=== PATIENT | male | born 1995 | race African-American/Black ===

== ENCOUNTER 2017-02-28 18:51 | Emergency (ER) | payer OTHER ==
--- NOTE | 2017-02-28 18:57 | PDOC ---
Rapid Medical Evaluation Time Seen by Provider: 02/28/17 18:53 Medical Evaluation: Allergies Allergy/AdvReac Type Severity Reaction Status Date / Time Penicillins Allergy Verified 11/10/15 07:04 shellfish derived Allergy Verified 11/10/15 07:05 02/28/17 18:53 I have performed a brief in person evaluation of this patient. The patient presents with chief complaint of : right shoulder pain for 2 days denies trauma woke up with the pain . [facility]. pt takes high doses of narcotics s/p lung cancer surgery 2 yrs ago. Pertinent PE findings: pain reproduced with movement, no relief with motrin. I have ordered the following: shoulder right xray The patient will proceed to the ER for further evaluation.
[2017-02-28 18:58] VITALS: BP 127/75; PULSE 84; TEMP 98; BMI 31.0
--- NOTE | 2017-02-28 19:47 | PDOC ---
History of Present Illness - General History Source: Patient Exam Limitations: No Limitations - History of Present Illness Occurred: reports: other (x2d) <Kacy Armstrong - Last Filed: 02/28/17 19:51> - History of Present Illness Initial Comments: 02/28/17 19:59 Patient is a 21 year old male with a significant past medical history of lung CA (Remission), tracheal stent, asthma who presents to the ED with right shoulder pain that began 2 days ago. Patient reports right shoulder pain began 2 days ago suddenly while at home. He reports pain is a 6/10 pain that is increased with movement of his arm. Patient reports taking motrin for right shoulder pain with minimal relief. Patient reports he is right hand dominant. Denies external trauma to affected area. Denies fever, chills. Denies nausea, vomiting. Denies contact with sick individual, out of state travel. Denies any other symptoms. Allergies: Penicillin, Shellfish Social history: Current [facility]. Former smoker (1 year ago, 5 cigarettes per day) . No alcohol. No illicit drugs. Surgical history: Right lung removal. PMD: Dr. Valle. <Michi Ni - Last Filed: 02/28/17 20:01> - General Chief Complaint: Pain, Acute Stated Complaint: RT SHOULDER PAIN Time Seen by Provider: 02/28/17 18:53 Past History - Past Medical History Asthma: Yes Cancer: Yes (LUNG CA--POST, 2014) COPD: No - Surgical History Lung Surgery: Yes (RT LOBECTOMY) - Immunization History Immunization Up to Date: Yes - Suicide/Smoking/Psychosocial Hx Smoking History: Never smoked Have you smoked in the past 12 months: No Number of Cigarettes Smoked Daily: 0 If you are a former smoker, when did you quit?: 2014 Cigars Per Day: 0 Information on smoking cessation initiated: No 'Breaking Loose' booklet given: 08/25/14 Hx Alcohol Use: No Drug/Substance Use Hx: No Substance Use Type: None Hx Substance Use Treatment: No <Kacy Armstrong - Last Filed: 02/28/17 19:51> <Michi Ni - Last Filed: 02/28/17 20:01> - Past Medical History Allergies/Adverse Reactions: Allergies Allergy/AdvReac Type Severity Reaction Status Date / Time Penicillins Allergy Verified 02/28/17 18:58 shellfish derived Allergy Verified 02/28/17 18:58 Home Medications: Ambulatory Orders Albuterol 0.083% Nebulizer Jory [Ventolin 0.083% Nebulizer Soln -] 1 neb NEB QID PRN 05/28/15 Albuterol 2.5/Ipratropium 0.5 [Duoneb -] 1 neb NEB Q4H #20 vial 05/28/15 Diclofenac Sodium 50 mg PO Q8H 05/28/15 Docusate Sodium [Colace -] 100 mg PO TID 05/28/15 Fluticasone Propionate [Flovent Hfa] 110 mcg IH BID 05/28/15 Oxymorphone HCl [Opana ER] 10 mg PO HS PRN 05/28/15 Pregabalin [Lyrica -] 100 mg PO BID 05/28/15 Sennosides [Senna] 2 tab PO HS 05/28/15 Prednisone 60 mg PO DAILY #100 tablet MDD 1 11/11/15 Review of Systems - Review of Systems Able to Perform ROS?: Yes Comments:: 02/28/17 19:59 GENERAL/CONSTITUTIONAL: No fever or chills. No weakness. HEAD, EYES, EARS, NOSE AND THROAT: No change in vision. No ear pain or discharge. No sore throat. GASTROINTESTINAL: No nausea, vomiting, diarrhea or constipation. GENITOURINARY: No dysuria, frequency, or change in urination. CARDIOVASCULAR: No chest pain or shortness of breath. RESPIRATORY: No cough, wheezing, or hemoptysis. MUSCULOSKELETAL: +Right shoulder pain. No joint or muscle swelling.. No neck or back pain. SKIN: No rash NEUROLOGIC: No headache, vertigo, loss of consciousness, or change in strength/ sensation. ENDOCRINE: No increased thirst. No abnormal weight change. HEMATOLOGIC/LYMPHATIC: No anemia, easy bleeding, or history of blood clots. ALLERGIC/IMMUNOLOGIC: No hives or skin allergy. All Other Systems: Reviewed and Negative <Michi Ni - Last Filed: 02/28/17 20:01> *Physical Exam - Vital Signs Last Vital Signs Temp Pulse Resp BP Pulse Ox 98 F 84 19 127/75 97 02/28/17 18:54 02/28/17 18:54 02/28/17 18:54 02/28/17 18:54 02/28/17 18:54 <Kacy Armstrong - Last Filed: 02/28/17 19:51> - Vital Signs Last Vital Signs Temp Pulse Resp BP Pulse Ox 98 F 84 19 127/75 97 02/28/17 18:54 02/28/17 18:54 02/28/17 18:54 02/28/17 18:54 02/28/17 18:54 - Physical Exam Comments: 02/28/17 20:00 GENERAL: Awake, alert, and fully oriented, in no acute distress HEAD: No signs of trauma EYES: PERRLA, EOMI, sclera anicteric, conjunctiva clear ENT: Auricles normal inspection, hearing grossly normal, nares patent, oropharynx clear without exudates. Moist mucosa NECK: Normal ROM, supple, no lymphadenopathy, JVD, or masses LUNGS: Breath sounds equal, clear to auscultation bilaterally. No wheezes, and no crackles HEART: Regular rate and rhythm, normal S1 and S2, no murmurs, rubs or gallops ABDOMEN: Soft, nontender, normoactive bowel sounds. No guarding, no rebound. No masses EXTREMITIES: +Good Deltoid sensation. +Limited right shoulder ROM, induces pain. Contour look the same. No obvious deformities. no edema. No clubbing or cyanosis. No cords, erythema, NEUROLOGICAL: Cranial nerves II through XII grossly intact. Normal speech, normal gait SKIN: Warm, Dry, normal turgor, no rashes or lesions noted. <Michi Ni - Last Filed: 02/28/17 20:01> *DC/Admit/Observation/Transfer - Discharge Dispostion Admit: No <Kacy Armstrong - Last Filed: 02/28/17 19:51> - Attestations Scribe Attestion: 02/28/17 20:01 Documentation prepared by Michi Ni, acting as certified medical coder for Benitez Villeda MD, /DO. <Michi Ni - Last Filed: 02/28/17 20:01> Diagnosis at time of Disposition: Right shoulder strain Qualifiers: Encounter type: initial encounter Qualified Code(s): S46.911A - Strain of unspecified muscle, fascia and tendon at shoulder and upper arm level, right arm , initial encounter - Discharge Dispostion Disposition: HOME Condition at time of disposition: Stable - Referrals Referrals: Laron Castro MD [Staff Physician] - - Patient Instructions Printed Discharge Instructions: DI for Shoulder Pain Additional Instructions: Ice; 20 mins on alternating with 20 mins off for 48 hours while awake. Rest Elevate Follow up with your orthopedic surgeon or the one listed on the discharge form. Return to the ER for severe/persistent/worsening symptoms, extremity numbness/ tingling sensation. Tylenol/Motrin as needed for pain
== END 2017-02-28 19:47 | disposition home or self-care (01) ==
LOC: JERFT 18:51
DX: S46.811A Strain of other muscles, fascia and tendons at shoulder and upper arm level, right arm, initial encounter (principal); X50.9XXA Other and unspecified overexertion or strenuous movements or postures, initial encounter; Y93.89 Activity, other specified; Y92.099 Unspecified place in other non-institutional residence as the place of occurrence of the external cause; Z85.118 Personal history of other malignant neoplasm of bronchus and lung; Z90.2 Acquired absence of lung [part of]; Z87.891 Personal history of nicotine dependence
CPT/HCPCS: 73030-TC-RT; 99281-25